=== PATIENT | female | born 1995 | race American Indian/Alaskan Native ===

== ENCOUNTER 2018-01-13 11:27 | Outpatient (CLI) | payer OTHER ==
[2018-01-13] MEDS ORDERED: PRENATAL TABLE1 EAC2 PO (13:15)
[2018-01-13] MEDS ORDERED: SYNTHROID75 MCG PO (13:15)
== END 2018-01-14 18:26 | disposition home or self-care (01) ==
LOC: OBS/DEL 11:27
DX: O26.852 Spotting complicating pregnancy, second trimester (principal); O60.02 Preterm labor without delivery, second trimester; Z34.82 Encounter for supervision of other normal pregnancy, second trimester